=== PATIENT | male | born 1990 | race Caucasian/White ===

== ENCOUNTER 2017-02-02 14:47 | Emergency (ER) | payer SELFPAY ==
[2017-02-02] MEDS ORDERED: CEPHALEXIN500 M1 PO (17:14)
== END 2017-02-02 17:46 | disposition home or self-care (01) ==
LOC: ED 14:47
DX: S61.512A Laceration without foreign body of left wrist, initial encounter (principal); S61.217A Laceration without foreign body of left little finger without damage to nail, initial encounter; W22.8XXA Striking against or struck by other objects, initial encounter; Y93.89 Activity, other specified; Y92.89 Other specified places as the place of occurrence of the external cause; Y99.9 Unspecified external cause status